=== PATIENT | male | born 2000 | race Caucasian/White ===

== ENCOUNTER → 2021-08-19 | Outpatient (CLI) | payer BC, OTHER ==
[~2021-08-19] MED LIST: ALLEGRA-D 24 H1 EACH PO; HYDROCODON-ACE473 ML PO; NORCO 5-325 TA1 EACH PO
== END ==
LOC: EMI 13:44
DX: R51.9 Headache, unspecified (principal); J32.0 Chronic maxillary sinusitis
CPT/HCPCS: 70553; A9577